=== PATIENT | female | born 1995 | race Two or more races ===

== ENCOUNTER 2016-06-10 09:48 | Emergency (ER) | payer MEDICAID ==
[2016-06-10 10:07] VITALS: BP 109/68
--- NOTE | 2016-06-10 10:28 | ER Document Report ---
ED Medical Screen (RME) - General Chief Complaint: Abdominal Pain Stated Complaint: STOMACH PAIN Mode of Arrival: Ambulatory Information source: Patient Notes: 21 y/o F presents to ED c/o intermittent bilateral lower abd pain over the last 2 weeks with associated n/v. States unknown LMP due to recent change from IUD to oral contraceptive. Denies fever, vaginal bleeding or discharge. I have greeted and performed a rapid initial assessment of this patient. A comprehensive ED assessment and evaluation of the patient, analysis of test results and completion of the medical decision making process will be conducted by additional ED providers. TRAVEL OUTSIDE OF THE [place] IN LAST 30 DAYS: No - Related Data Allergies/Adverse Reactions: No Known Allergies Allergy (Verified 02/06/12 14:55) Past Medical History - Social History Frequency of alcohol use: None Drug Abuse: None Pulmonary Medical History: Reports: Hx Asthma Renal/ Medical History: Denies: Hx Peritoneal Dialysis Past Surgical History: Reports: Hx Section - x1 - Immunizations Hx Diphtheria, Pertussis, Tetanus Vaccination: Yes Physical Exam - Vital signs Vitals: Temp Pulse Resp BP Pulse Ox 98.9 F 93 16 109/68 97 06/10/16 10:05 06/10/16 10:05 06/10/16 10:05 06/10/16 10:05 06/10/16 10:05 - General General appearance: Appears well, Alert In distress: None Course - Vital Signs Vital signs: Temp Pulse Resp BP Pulse Ox 98.9 F 93 16 109/68 97 06/10/16 10:05 06/10/16 10:05 06/10/16 10:05 06/10/16 10:05 06/10/16 10:05
[2016-06-10 10:49] LABS: ABSOLUTE EOSINOPHILS # (AUTO) 0.3 10^3/uL (0.0-0.6); ABSOLUTE LYMPHOCYTES (AUTO) 1.9 10^3/uL (0.5-4.7); ABSOLUTE MONOCYTES (AUTO) 0.5 10^3/uL (0.1-1.4); BASOPHILS % (AUTO) 0.6 % (0-2); EOSINOPHILS % (AUTO) 4.5 % (0-6); HEMATOCRIT 40.3 % (36.0-47.0); HEMOGLOBIN 13.2 g/dL (12.0-15.5); HGB HCT DIFFERENCE -0.7; MEAN CORPUSCULAR HEMOGLOBIN 26.7 pg (27.0-33.4); MEAN CORPUSCULAR HGB CONC 32.8 g/dL (32.0-36.0); MEAN CORPUSCULAR VOLUME 82 fl (80-97); MONOCYTES % (AUTO) 7.4 % (3-13); RED BLOOD COUNT 4.95 10^6/uL (3.72-5.28); RED CELL DISTRIBUTION WIDTH 13.6 % (11.5-14.0); SEGMENTED NEUTROPHILS % (AUTO) 59.5 % (42-78); WHITE BLOOD COUNT 6.7 10^3/uL (4.0-10.5)
[2016-06-10 10:57] LABS: APPEARANCE,URINE SLIGHTLY-CLOUDY; BILIRUBIN,URINE NEGATIVE (NEGATIVE); GLUCOSE, URINE NEGATIVE (NEGATIVE); KETONES,URINE NEGATIVE (NEGATIVE); LEUKOCYTE ESTERASE,URINE TRACE (NEGATIVE); NITRITE,URINE NEGATIVE (NEGATIVE); PROTEIN,URINE NEGATIVE (NEGATIVE); URINE SPECIFIC GRAVITY 1.016; UROBILINOGEN,URINE NEGATIVE mg/dL (<2.0)
[2016-06-10 11:11] LABS: ALANINE AMINOTRANSFERASE 32 U/L (9-52); ALBUMIN 3.7 g/dL (3.5-5.0); ALKALINE PHOSPHATASE 66 U/L (38-126); ANION GAP 10 (5-19); ASPARTATE AMINO TRANSFERASE 26 U/L (14-36); BILIRUBIN,TOTAL 0.5 mg/dL (0.2-1.3); BLOOD UREA NITROGEN 15 mg/dL (7-20); CALCIUM 9.6 mg/dL (8.4-10.2); CARBON DIOXIDE 28 mmol/L (22-30); CHLORIDE 103 mmol/L (98-107); CREATININE RESULT 0.87 mg/dL (0.52-1.25); GLUCOSE 78 mg/dL (75-110); LIPASE 58.3 U/L (23-300); POTASSIUM 4.1 mmol/L (3.6-5.0); SODIUM 141.1 mmol/L (137-145); TOTAL PROTEIN 7.1 g/dL (6.3-8.2)
--- NOTE | 2016-06-10 11:50 | ER Document Report ---
ED General - General Chief Complaint: Abdominal Pain Stated Complaint: STOMACH PAIN Time seen by provider: 11:49 Mode of Arrival: Ambulatory Information source: Patient Notes: This is a 21-year-old female who presents to the emergency room with intermittent abdominal discomfort. Patient states she hasn't felt right since the Mi[facility]. Patient denies fever, chills, vaginal discharge. Patient currently has no pain. TRAVEL OUTSIDE OF THE [place] IN LAST 30 DAYS: No - HPI Onset: Last week Onset/Duration: Gradual Quality of pain: Cramping Severity: None Pain Level: Denies Associated symptoms: denies: Chills, Nonproductive cough, Productive cough, Fever Exacerbated by: Denies Relieved by: Denies Similar symptoms previously: Yes Recently seen / treated by doctor: No - Related Data Allergies/Adverse Reactions: No Known Allergies Allergy (Verified 02/06/12 14:55) Past Medical History - General Information source: Patient - Social History Smoking Status: Never Smoker Cigarette use (# per day): No Chew tobacco use (# tins/day): No Frequency of alcohol use: None Drug Abuse: None Lives with: Spouse/Significant other Family History: Reviewed & Not Pertinent Patient has suicidal ideation: No Patient has homicidal ideation: No - Past Medical History Cardiac Medical History: Reports: None Pulmonary Medical History: Reports: Hx Asthma EENT Medical History: Reports: None Neurological Medical History: Reports: None Endocrine Medical History: Reports: None Renal/ Medical History: Denies: Hx Peritoneal Dialysis Malignancy Medical History: Reports: None GI Medical History: Reports: None Past Surgical History: Reports: Hx Section - x1 - Immunizations Hx Diphtheria, Pertussis, Tetanus Vaccination: Yes Review of Systems - Review of Systems Constitutional: denies: Chills, Fever EENT: No symptoms reported Cardiovascular: No symptoms reported Respiratory: No symptoms reported Gastrointestinal: No symptoms reported Genitourinary: See HPI Female Genitourinary: No symptoms reported Musculoskeletal: No symptoms reported Skin: No symptoms reported Hematologic/Lymphatic: No symptoms reported Neurological/Psychological: No symptoms reported Physical Exam - Vital signs Vitals: Temp Pulse Resp BP Pulse Ox 98.9 F 93 16 109/68 97 06/10/16 10:05 06/10/16 10:05 06/10/16 10:05 06/10/16 10:05 06/10/16 10:05 Notes: Physical exam: GENERAL: 21-year-old female, alert and oriented 3, no acute distress. HEAD: Atraumatic, normocephalic. EYES: Pupils equal round and reactive to light, extraocular movements intact, sclera anicteric, conjunctiva are normal. ENT: TMs normal, nares patent, oropharynx clear without exudates. Moist mucous membranes. NECK: Normal range of motion, supple without lymphadenopathy or JVD. LUNGS: Breath sounds clear to auscultation bilaterally and equal. No wheezes rales or rhonchi. HEART: Regular rate and rhythm without murmurs, rubs or gallops. ABDOMEN: Soft, nontender, normoactive bowel sounds. No guarding, no rebound. No masses appreciated. Pelvic exam: External genitalia normal, scant discharge in vault, no cervical motion tenderness, no adnexal tenderness. EXTREMITIES: Normal range of motion, no pitting or edema. No clubbing or cyanosis. NEUROLOGICAL: Cranial nerves II through XII grossly intact. Normal speech, normal gait. PSYCH: Normal mood, normal affect. SKIN: Warm, Dry, normal turgor, no rashes or lesions noted. Course - Vital Signs Vital signs: Temp Pulse Resp BP Pulse Ox 98.9 F 93 16 109/68 97 06/10/16 10:05 06/10/16 10:05 06/10/16 10:05 06/10/16 10:05 06/10/16 10:05 - Laboratory Result Diagrams: 06/10/16 10:30 06/10/16 10:30 Laboratory results interpreted by me: 06/10/16 06/10/16 10:30 10:30 MCH 26.7 L Ur Leukocyte Esterase TRACE H - Diagnostic Test Radiology reviewed: Image reviewed, Reports reviewed - Gallbladder exam shows no gallstones, normal gallbladder wall, no cholecystic fluid. Discharge - Discharge Bad tableCondition: Stable Disposition: HOME, SELF-CARE Additional Instructions: Recommendations: Rest, drink plenty of fluids, advance diet as tolerated. Return to the emergency room with worsening abdominal pain, persistant pain or pain which moves to the right lower abdomen. You can try Probiotics: Activia Probiotic is sold next is milk and [employer] : Twice daily for the next 2 weeks. Follow-up with a physician in the next two days: either with your primary care provider or a provider recommended by the ER doctor. If you are unable to see a provider, return to the ER for re-evaulation.
[2016-06-10 15:02] LABS: CHLAM PCR NOT DETECTED (NOT DETECT)
== END 2016-06-10 15:42 | disposition left against medical advice (07) ==
LOC: ER 09:48
DX: R10.9 Unspecified abdominal pain (principal); J45.909 Unspecified asthma, uncomplicated; Z98.890 Other specified postprocedural states
CPT/HCPCS: 36415; 76705; 80053; 81001; 83690; 84702; 85025; 87210; 87491; 87591; 99284

== ENCOUNTER 2016-06-18 21:27 | Emergency (ER) | payer MEDICAID ==
--- NOTE | 2016-06-18 22:43 | ER Document Report ---
ED Extremity Problem, Lower - General Time seen by provider: 23:10 Mode of Arrival: Wheelchair Information source: Patient TRAVEL OUTSIDE OF THE [place] IN LAST 30 DAYS: No - HPI Patient complains to provider of: Injury, Pain, Swelling Location: Ankle Occurred: This evening Where: Outdoors Onset/Duration: Sudden Quality of pain: Achy, Throbbing Context: Twisted Recent injury: Yes Associated symptoms: Painful ambulation <CARLOZ MUNIZ - Last Filed: 06/19/16 00:45> <MARY DALTON - Last Filed: 06/19/16 01:43> - General Chief Complaint: Ankle Injury Stated Complaint: LEFT ANKLE INJURY Notes: Patient is a 21-year-old female presented first department with complaints of pain and swelling to her left ankle. Patient states that she was walking and twisted her foot and all. Patient states that it is also painful to ambulate. Patient also has some pain to her left knee. Patient states that she has not used crutches before but does not think that she can ambulate effectively with the current condition of her ankle. Patient has no known allergies. (CARLOZ MUNIZ) - Related Data Allergies/Adverse Reactions: No Known Allergies Allergy (Verified 02/06/12 14:55) Past Medical History - General Information source: Patient - Social History Smoking Status: Never Smoker Cigarette use (# per day): No Chew tobacco use (# tins/day): No Frequency of alcohol use: None Drug Abuse: None Family History: None Patient has suicidal ideation: No Patient has homicidal ideation: No Pulmonary Medical History: Reports: Hx Asthma Past Surgical History: Reports: Hx Section - x1 - Immunizations Hx Diphtheria, Pertussis, Tetanus Vaccination: Yes <CARLOZ MUNIZ - Last Filed: 06/19/16 00:45> Review of Systems - Review of Systems Constitutional: No symptoms reported EENT: No symptoms reported Cardiovascular: No symptoms reported Respiratory: No symptoms reported Gastrointestinal: No symptoms reported Genitourinary: No symptoms reported Female Genitourinary: No symptoms reported Musculoskeletal: See HPI Skin: No symptoms reported Hematologic/Lymphatic: No symptoms reported Neurological/Psychological: No symptoms reported -: Yes All other systems reviewed and negative <CARLOZ MUNIZ - Last Filed: 06/19/16 00:45> Physical Exam - Vital signs Interpretation: Normal - General General appearance: Appears well, Alert In distress: Mild - HEENT Head: Normocephalic, Atraumatic Eyes: Normal Pupils: PERRL Mucous membranes: Moist - Respiratory Respiratory status: No respiratory distress - Cardiovascular Rhythm: Regular - Abdominal Inspection: Obese - Back Back: Normal, Nontender - Extremities General upper extremity: Normal inspection, Normal ROM, Normal strength Ankle: Tender - Tenderness to the inferior of the lateral malleolus, Ecchymosis , Edema - Neurological Neuro grossly intact: Yes Cognition: Normal Orientation: AAOx4 Veto Coma Scale Eye Opening: Spontaneous [place] Coma Scale Verbal: Oriented [place] Coma Scale Motor: Obeys Commands Veto Coma Scale Total: 15 Speech: Normal Sensory: Normal - Psychological Associated symptoms: Normal affect, Normal mood - Skin Skin Temperature: Warm Skin Moisture: Dry <CARLOZ MUNIZ - Last Filed: 06/19/16 00:45> Course <CARLOZ MUNIZ - Last Filed: 06/19/16 00:45> - Diagnostic Test Radiology reviewed: Reports reviewed <MARY DALTON - Last Filed: 06/19/16 01:43> - Re-evaluation Re-evalutation: 06/19/16 Patient with no evidence for fracture on x-ray. Patient with sprain of ankle. Patient will be given crutches, ankle splint. She is to follow-up with her doctor and return if any worsening or concerning symptoms. X-ray of knee within normal limits. No other injuries. Stable for discharge home. (MARY DALTON) - Vital Signs Vital signs: Temp Pulse Resp BP Pulse Ox 98.0 F 91 18 131/61 H 99 06/18/16 23:50 06/18/16 23:50 06/18/16 23:50 06/18/16 23:50 06/18/16 23:50 (CARLOZ MUNIZ) (MARY DALTON) Procedures - Immobilization Left Ankle Pre-Proc Neuro Vasc Exam: Normal Immobilizer type: Messi wrap, Ankle stirrup Performed by: PCT Post-Proc Neuro Vasc Exam: Normal Alignment checked and good: Yes <MARY DALTON - Last Filed: 06/19/16 01:43> Discharge <CARLOZ MUNIZ - Last Filed: 06/19/16 00:45> <MARY DALTON - Last Filed: 06/19/16 01:43> - Discharge Clinical Impression: Ankle sprain Qualifiers: Encounter type: initial encounter Involved ligament of ankle: unspecified ligament Laterality: left Qualified Code(s): S93.402A - Sprain of unspecified ligament of left ankle, initial encounter Condition: Stable Disposition: HOME, SELF-CARE Instructions: Messi Wrap ([facility]), Ankle Stirrup Splint ([facility]), Use of Crutches ([facility]) , Sprained Ankle ([facility]) Prescriptions: Tramadol HCl [Ultram 50 mg Tablet] 50 mg PO Q6HP PRN #20 tablet PRN Reason: Forms: Return to Work Scribe Attestation: 06/19/16 01:43 I personally performed the services described in the documentation, reviewed and edited the documentation which was dictated to the scribe in my presence, and it accurately records my words and actions. (MARY DALTON) Scribe Documentation - Scribe Written by Carolina:: Carloz Muniz 06/18/16 23:35 acting as scribe for :: Digna <CARLOZ MUNIZ - Last Filed: 06/19/16 00:45>
[2016-06-18] MEDS ORDERED: HYDROCODONE/ACETAMINOPHEN 5-325 MG 6 TAB/DSPK PO PRN (23:15)
[2016-06-18 23:52] VITALS: BP 131/61
== END 2016-06-19 00:50 | disposition home or self-care (01) ==
LOC: ER 21:27
DX: S93.402A Sprain of unspecified ligament of left ankle, initial encounter (principal); M25.562 Pain in left knee; X50.1XXA Overexertion from prolonged static or awkward postures, initial encounter
CPT/HCPCS: 99283; 73610; 73560; L1902

== ENCOUNTER 2016-10-23 09:57 | Emergency (ER) | payer MEDICAID ==
--- NOTE | 2016-10-23 10:26 | ER Document Report ---
ED Medical Screen (RME) - General Chief Complaint: Nausea/Vomiting/Diarrhea Stated Complaint: ABDOMINAL PAIN/NAUSEA/DIARRHEA Time Seen by Provider: 10/23/16 10:25 Notes: Patient is a 21 year old female presenting to the ED for nausea, vomiting, and diarrhea since last night. Patient also had some spotting on Saturday or Saturday. Patient states she also has her normal "morning sickness" from her . Patient guesses she is 20 weeks but she states her last menstrual cycle was in April or May. Patient also has general abdominal cramping and some chills. Patient denies bloody stool or hematemesis. Patient is . I have greeted and performed a rapid initial assessment of this patient. A comprehensive ED assessment and evaluation of the patient, analysis of test results and completion of the medical decision making process will be conducted by additional ED providers. TRAVEL OUTSIDE OF THE [place] IN LAST 30 DAYS: No - Related Data Allergies/Adverse Reactions: No Known Allergies Allergy (Verified 10/23/16 10:13) Past Medical History Pulmonary Medical History: Reports: Hx Asthma Renal/ Medical History: Denies: Hx Peritoneal Dialysis Past Surgical History: Reports: Hx Section - x1 - Immunizations Hx Diphtheria, Pertussis, Tetanus Vaccination: Yes Physical Exam - Notes Notes: GENERAL: Alert, interacts well. No acute distress. LUNGS: Clear to auscultation bilaterally, no wheezes, rales, or rhonchi. No respiratory distress. HEART: Regular rate and rhythm. No murmurs, gallops, or rubs. ABDOMEN: Minimal generalized tenderness. Course - Laboratory Result Diagrams: 10/23/16 10:35 10/23/16 10:35 Laboratory results interpreted by me: 10/23/16 10:35 Hgb 11.1 L Hct 33.2 L RDW 16.4 H Scribe Documentation - Scribe Written by Carolina:: Carolina Cain, 10/23/16 10:32 acting as scribe for :: Noel
[2016-10-23 10:44] LABS: ABSOLUTE EOSINOPHILS # (AUTO) 0.1 10^3/uL (0.0-0.6); ABSOLUTE LYMPHOCYTES (AUTO) 1.3 10^3/uL (0.5-4.7); ABSOLUTE MONOCYTES (AUTO) 0.4 10^3/uL (0.1-1.4); ABSOLUTE NEUT (AUTO) 6.1 10^3/uL (1.7-8.2); BASOPHILS % (AUTO) 0.4 % (0-2); EOSINOPHILS % (AUTO) 1.5 % (0-6); HEMATOCRIT 33.2 % (36.0-47.0); HEMOGLOBIN 11.1 g/dL (12.0-15.5); HGB HCT DIFFERENCE 0.1; LYMPHOCYTES % (AUTO) 16.3 % (13-45); MEAN CORPUSCULAR HEMOGLOBIN 28.6 pg (27.0-33.4); MEAN CORPUSCULAR HGB CONC 33.5 g/dL (32.0-36.0); MEAN CORPUSCULAR VOLUME 85 fl (80-97); MONOCYTES % (AUTO) 4.9 % (3-13); RED CELL DISTRIBUTION WIDTH 16.4 % (11.5-14.0); SEGMENTED NEUTROPHILS % (AUTO) 76.9 % (42-78); WHITE BLOOD COUNT 7.9 10^3/uL (4.0-10.5)
[2016-10-23] MEDS ORDERED: NORMAL SALINE 1000 ML 1,000 ML IV ONE (11:04)
[2016-10-23 11:22] LABS: ALANINE AMINOTRANSFERASE 27 U/L (9-52); ALBUMIN 3.5 g/dL (3.5-5.0); ALKALINE PHOSPHATASE 56 U/L (38-126); ANION GAP 11 (5-19); ASPARTATE AMINO TRANSFERASE 16 U/L (14-36); BILIRUBIN,DIRECT 0.2 mg/dL (0.0-0.4); BILIRUBIN,TOTAL 0.4 mg/dL (0.2-1.3); BLOOD UREA NITROGEN 8 mg/dL (7-20); CALCIUM 9.5 mg/dL (8.4-10.2); CARBON DIOXIDE 23 mmol/L (22-30); CHLORIDE 105 mmol/L (98-107); CREATININE RESULT 0.64 mg/dL (0.52-1.25); GLUCOSE 78 mg/dL (75-110); POTASSIUM 4.1 mmol/L (3.6-5.0); SODIUM 138.9 mmol/L (137-145); TOTAL PROTEIN 6.5 g/dL (6.3-8.2)
[2016-10-23 11:52] LABS: AMORPHOUS SEDIMENT,URINE TRACE /HPF; APPEARANCE,URINE SLIGHTLY-CLOUDY; BILIRUBIN,URINE NEGATIVE (NEGATIVE); GLUCOSE, URINE NEGATIVE (NEGATIVE); KETONES,URINE NEGATIVE (NEGATIVE); LEUKOCYTE ESTERASE,URINE SMALL (NEGATIVE); NITRITE,URINE NEGATIVE (NEGATIVE); PROTEIN,URINE NEGATIVE (NEGATIVE); URINE SPECIFIC GRAVITY 1.029; UROBILINOGEN,URINE NEGATIVE mg/dL (<2.0)
--- NOTE | 2016-10-23 12:18 | RADIOLOGY REPORT (SQ) ---
EXAM DESCRIPTION: U/S OB 14+ TRNABD 1GES W/O DOP COMPLETED DATE/TIME: 10/23/2016 12:07 pm REASON FOR STUDY: 4 - 5 mos preg; spotting yest COMPARISON: None. TECHNIQUE: Static and Dynamic grayscale imaging performed of gravid uterus using transabdominal appr oach. Additional selected color Doppler and spectral images recorded. All stored on PACS. LIMITATIONS: None. FINDINGS: EGA: 21 weeks 6 days KIMI: 02/27/2017 EFW: 464 +/- 39 g PERCENTILE: Not calculated ELLIE: Largest pocket 6.4 cm PLACENTA: Anterior PRESENTATION: Breech ANATOMY: HEART RATE: 123 beats per minute. FOUR CHAMBER HEART: Visualized. THREE VESSEL CORD: Yes. CORD INSERTION: Visualized. KIDNEYS AND BLADDER: Visualized. Appear normal. STOMACH: Visualized. Appears normal. SPINE: Normal as visualized. BRAIN AND LATERAL VENTRICLES: Visualized. Appear normal. OTHER: No other significant finding. MATERNAL ADNEXA: Maternal ovaries not visualized. OTHER: No other significant finding. IMPRESSION: LIVING INTRAUTERINE . ESTIMATED GESTATIONAL AGE 21 weeks 6 days NO VISUALIZED ANOMALIES. Trimester of : Second trimester - 13 weeks 1 day to 27 weeks 6 days. TECHNICAL DOCUMENTATION: JOB ID: [id number] [employer]- All Rights Reserved
--- NOTE | 2016-10-23 12:48 | ER Document Report ---
ED GI/ - General Chief Complaint: Nausea/Vomiting/Diarrhea Stated Complaint: ABDOMINAL PAIN/NAUSEA/DIARRHEA Time Seen by Provider: 10/23/16 10:25 Notes: Patient is here because she is having abdominal pains, and nausea, vomiting, and diarrhea. She says that she is approximately 5 . She noticed some vaginal spotting Saturday but it is not present now. Not having any current abdominal or pelvic pains. She has not had any care. She is scheduled to go to the health department for her first visit next week. This is her second and she has a living child. LMP April or May, not sure. Denies any fever. Has had some sweats. PMH: TRAVEL OUTSIDE OF THE [place] IN LAST 30 DAYS: No - Related Data Allergies/Adverse Reactions: No Known Allergies Allergy (Verified 10/23/16 10:13) Past Medical History - Social History Smoking Status: Never Smoker Chew tobacco use (# tins/day): No Frequency of alcohol use: None Drug Abuse: None Family History: None, Reviewed & Not Pertinent Patient has suicidal ideation: No Patient has homicidal ideation: No Pulmonary Medical History: Reports: Hx Asthma Past Surgical History: Reports: Hx Section - x1 - Immunizations Hx Diphtheria, Pertussis, Tetanus Vaccination: Yes Review of Systems - Review of Systems Notes: REVIEW OF SYSTEMS: CONSTITUTIONAL : Denies fever. EENT: Denies eye, ear, nose or mouth or throat pain or other symptoms. CARDIOVASCULAR: Denies chest pain. RESPIRATORY: Denies cough, chest congestion, or shortness of breath. GASTROINTESTINAL: See HPI. GENITOURINARY: Denies difficulty or painful urinating, urinary frequency, blood in urine. See HPI. MUSCULOSKELETAL: Denies back or neck pain. Denies joint pain or swelling. SKIN: Denies rash or skin lesions. NEUROLOGICAL: Denies LOC or altered mental status. Denies headache. Denies sensory loss or motor deficits. ALL OTHER SYSTEMS REVIEWED AND NEGATIVE. Physical Exam - Vital signs Interpretation: Normal - Notes Notes: PHYSICAL EXAMINATION: GENERAL: Well-appearing, in no acute distress. Vital signs are all normal. HEAD: Atraumatic, normocephalic. NECK: Normal range of motion, supple. LUNGS: Breath sounds clear and equal bilaterally. HEART: Regular rate and rhythm without murmurs. ABDOMEN: Soft, nontender. No guarding or rebound. BACK: No tenderness throughout entire back. EXTREMITIES: Normal range of motion without pain. NEUROLOGICAL: Normal speech, normal gait. Normal sensory, motor, and reflex exams. Awake, alert, and oriented x3. Cranial nerves normal. SKIN: Warm, dry, no rashes. Course - Re-evaluation Re-evalutation: 10/23/16 12:52 Patient received a liter of saline. Lab studies are all essentially normal. Abdomen remains soft and nontender. We will arrange for patient to be evaluated in L&D because of the spotting that she reports and the mild generalized cramping that she reports. - Laboratory Result Diagrams: 10/23/16 10:35 10/23/16 10:35 Laboratory results interpreted by me: 10/23/16 10/23/16 10/23/16 10:35 10:35 11:30 Hgb 11.1 L Hct 33.2 L RDW 16.4 H Beta HCG, Quant 96291.00 H Ur Leukocyte Esterase SMALL H - Diagnostic Test Radiology reviewed: Image reviewed, Reports reviewed - Ultrasound shows a 21 week living IUP. Discharge - Discharge Clinical Impression: Qualifiers: Weeks of gestation: 22 weeks Qualified Code(s): Z3A.22 - 22 weeks gestation of Condition: Stable Disposition: HOME, SELF-CARE Additional Instructions: You are . care is best started as early in as possible. If you're unsure about continuing this , you should discuss this with your physician or with date pitter at [facility]. You should take only medications approved by your physician. Acetaminophen can safely be taken for minor pains. As a rule, medication for chronic conditions such as asthma or seizures can safely be continued. You should discuss with the physician every medicine you take. Any regular exercise program can be continued. Talk to your physician, however, before engaging in competitive or demanding sports. Alcohol, smoking, and "street drugs" are dangerous to your baby. Cocaine is especially dangerous. Don't use any illicit drugs! VOMITING: Vomiting (or nausea without vomiting) can be caused by many other different problems. It can mean that something's wrong with the stomach, such as ulcers or inflammation or the intestinal tract, such as appendicitis. But it can also be a symptom of a problem that has nothing to do with the stomach or intestines. Vomiting is common with severe headaches, earaches, tonsillitis, and kidney infections, etc. We see it with pneumonia or heart attacks. Drugs can cause nausea and vomiting. Many abdominal problems cause vomiting; for example, gallstones, kidney stones, pancreatitis, and intestinal obstruction ( blocked bowels). In most cases, curing the vomiting depends on fixing the problem that caused it. For temporary relief, we may use an anti-nausea medicine. For home use, we can prescribe suppositories, chewable pills, pills that dissolve in the mouth, or liquid anti-nausea drugs. If the vomiting seems to be caused by a problem in the stomach, acid-suppressing drugs may be prescribed as well. It's important to avoid dehydration. Sip small amounts of clear liquids ( soft drinks, tea, broth, etc) . Try to take fluids frequently even if you are vomiting to prevent dehydration. Take increasing amounts of fluid and when liquids are being consumed successfully, advance to small amounts of bland food (toast, soups, mashed potatoes, etc.) until you are able to resume a regular diet. Avoid aspirin, tobacco, and alcohol. If the vomiting worsens, if the problem that's making you vomit worsens, or if there's evidence of bleeding in the stomach (such as black, tarry stool, or bloody or black vomit), you should return immediately. Also, return if abdominal pain worsens or becomes localized to one area or you develop high fever. Call your doctor if you aren't improved in 24 hours. DIARRHEA, NON-SPECIFIC: Diarrhea means frequent, watery stools. There are many causes. Any problem that keeps the intestinal tract from absorbing water from the stool can lead to diarrhea. A sudden new diarrhea problem is usually caused by a virus, food sensitivity, toxic bacteria, or drugs. In this case, we expect the problem to go away soon. Testing is done only if you seem seriously ill from the diarrhea. If you have chronic diarrhea, or diarrhea that keeps coming back, we need to find out why. Chronic diarrhea can be due to inflammation of the bowels such as Crohn's disease or ulcerative colitis, food sensitivity such as intolerance to lactose or wheat protein, irritable bowel syndrome, and other problems. If your diarrhea is a significant problem but it's not clear why you have it, we' ll refer you to a specialist for further testing. During an episode of diarrhea, drink small amounts (two to six ounces) of clear liquids (soft drinks, sport drinks, herb teas, broth, etc). Take fluids frequently to prevent dehydration. It's usually not a problem to take mild anti- diarrhea medication such as Kaopectate or Pepto-Bismol. As the diarrhea eases, advance to small amounts of bland food (mashed potato, toast) for 24 hours. Call the physician if blood appears in your vomit or stool, if vomiting lasts longer than 24 hours, if the abdominal pain worsens or becomes localized to one area, if you develop high fever, or if you become lightheaded and weak. VIRAL SYNDROME: The physician has diagnosed a viral infection. Viruses not only cause "colds," but can cause many different symptoms including generalized aching, fever, headache, cough, diarrhea, nausea, vomiting, and fatigue. The treatment, for the most part, is simply relief of symptoms. This means that antibiotics are usually not given. Rest, fluids, pain medications and, occasionally, medication for the specific symptoms that are most bothersome will be prescribed. Use good handwashing to avoid passing the virus to others. Shared toys should be cleaned with disinfectant. Clean the toilets, sinks, and counter surfaces in bathrooms. Launder clothing in hot water. Contact the physician if you develop any new or unusual symptoms such as severe headache, stiff neck, high fever, chest pain, productive cough, or shortness of breath. You should be rechecked if you don't see marked improvement within seven to 10 days. INTRAVENOUS (I V) FLUIDS: As part of your care today, you received intravenous (IV) fluids. IV fluids are administered to patients who are dehydrated or to those who have certain chemical (electrolyte) abnormalities that need correcting. ANTINAUSEA MEDICATION: You have been given a medication to suppress nausea and vomiting. This type of medication can be given as a shot, pill, or suppository. It will usually last for many hours. Pills and shots usually last six to eight hours. For the typical illness, only one or two doses of the medication may be necessary. Mild lightheadedness may occur. This type of medicine can cause drowsiness. Do not drive or operate dangerous machinery while under its influence. Do not mix with alcohol. See your doctor at once if you have muscle spasms or tightness, or uncontrollable motions (particularly of the neck, mouth, or jaw). Persistent vomiting or severe lightheadedness should also be evaluated by the physician. FOLLOW-UP CARE: If you have been referred to a physician for follow-up care, call the physician s office for an appointment as you were instructed or within the next two days. If you experience worsening or a significant change in your symptoms, notify the physician immediately or return to the Emergency Department at any time for re-evaluation. Follow-up at the health department next week, as scheduled. Prescriptions: Ondansetron [Zofran Odt 4 mg Tablet] 1 - 2 tab PO Q4H PRN #10 tab.rapdis PRN Reason: For Nausea/Vomiting
[2016-10-23 13:24] VITALS: BP 109/59
== END 2016-10-23 14:00 | disposition home or self-care (01) ==
LOC: ER 09:57
DX: R11.2 Nausea with vomiting, unspecified (principal); R19.7 Diarrhea, unspecified; R10.9 Unspecified abdominal pain; Z3A.22 22 weeks gestation of pregnancy
CPT/HCPCS: 99284; 86900; 86901; 36415; 84702; 85025; 80053; 81001; 76805; J7030

== ENCOUNTER 2017-02-16 13:30 | Emergency (ER) | payer MEDICAID ==
[2017-02-16] MEDS ORDERED: NORMAL SALINE 1000 ML 1,000 ML IV PRN (13:55)
[2017-02-16] MEDS ORDERED: ONDANSETRON HCL INJ/PF 4 MG/2 ML SDV IV ONE (13:55)
--- NOTE | 2017-02-16 13:57 | ER Document Report ---
ED Medical Screen (RME) - General Chief Complaint: Back Pain Stated Complaint: BACK PAIN/CRAMPING Time Seen by Provider: 02/16/17 13:37 Mode of Arrival: Ambulatory Information source: Patient TRAVEL OUTSIDE OF THE [place] IN LAST 30 DAYS: No - HPI Patient complains to provider of: Abdominal pain with nausea and vomiting Notes: 02/16/17 13:56 Patient is a 22-year-old female presenting to the emergency room for complaints of upper abdominal pain with nausea and vomiting that has been worsening over the past 7-10 days, she reports nausea with vomiting after eating, dark orange colored urine although she drinks plenty of water, pain is a cramping sensation and turns into a sharp pain when she takes a deep breath, she also has pain between her shoulder blades, patient is approximately 5 weeks post via C- section delivery at 34 weeks gestation, no history of similar symptoms previously, patient still has a gallbladder and appears jaundice with scleral icterus in triage area - Related Data Allergies/Adverse Reactions: No Known Allergies Allergy (Verified 10/23/16 10:13) Past Medical History Pulmonary Medical History: Reports: Hx Asthma Renal/ Medical History: Denies: Hx Peritoneal Dialysis GI Medical History: Reports: Hx Gastroesophageal Reflux Disease - only Past Surgical History: Reports: Hx Section - x1 - Immunizations Hx Diphtheria, Pertussis, Tetanus Vaccination: Yes Physical Exam - Vital signs Vitals: Temp Pulse Resp BP Pulse Ox 98.8 F 68 16 124/69 98 02/16/17 13:32 02/16/17 13:32 02/16/17 13:32 02/16/17 13:32 02/16/17 13:32 Course - Vital Signs Vital signs: Temp Pulse Resp BP Pulse Ox 98.8 F 68 16 124/69 98 02/16/17 13:32 02/16/17 13:32 02/16/17 13:32 02/16/17 13:32 02/16/17 13:32
--- NOTE | 2017-02-16 14:30 | ER Document Report ---
ED General - General Mode of Arrival: Ambulatory Information source: Patient TRAVEL OUTSIDE OF THE [place] IN LAST 30 DAYS: No - HPI Onset: Other <CARLOZ MUNIZ - Last Filed: 02/16/17 16:07> <LOIS BRANDT - Last Filed: 02/16/17 22:59> <NGOZIHERNESTO - Last Filed: 02/17/17 13:41> - General Chief Complaint: Back Pain Stated Complaint: BACK PAIN/CRAMPING Time Seen by Provider: 02/16/17 13:37 Notes: Patient is a 22-year-old female presented emergency department for right upper quadrant abdominal pain that radiates into her back. Patient also has nausea and vomiting 7-10 days. Patient states that her pain is exacerbated with eating and she gets abdominal cramps with eating. Patient states that she also has had orange colored urine. Patient states she drinks lots of water daily. Patient states that she has sharp pains when she takes a deep breath that she rated her shoulder blades. Patient is approximately 5 weeks from an emergency . This is patient's second and it occurred at 34 weeks gestation due to a membrane rupture. Patient states that she is no longer breast-feeding. Patient does have a history of asthma however she does not have to take any medications and has not had any exacerbations for such. Patient has no known drug allergies. (CARLOZ MUNIZ) - Related Data Allergies/Adverse Reactions: No Known Allergies Allergy (Verified 10/23/16 10:13) Past Medical History - General Information source: Patient - Social History Smoking Status: Never Smoker Chew tobacco use (# tins/day): No Frequency of alcohol use: None Drug Abuse: None Family History: None Patient has suicidal ideation: No Patient has homicidal ideation: No Pulmonary Medical History: Reports: Hx Asthma GI Medical History: Reports: Hx Gastroesophageal Reflux Disease - only Past Surgical History: Reports: Hx Section - x1 - Immunizations Hx Diphtheria, Pertussis, Tetanus Vaccination: Yes <CARLOZ MUNIZ - Last Filed: 02/16/17 16:07> Review of Systems - Review of Systems Constitutional: No symptoms reported EENT: No symptoms reported Cardiovascular: No symptoms reported Respiratory: No symptoms reported Gastrointestinal: See HPI, Abdominal pain, Nausea, Vomiting Genitourinary: See HPI, Other - orange urine Female Genitourinary: No symptoms reported Musculoskeletal: See HPI Skin: No symptoms reported Hematologic/Lymphatic: No symptoms reported Neurological/Psychological: No symptoms reported -: Yes All other systems reviewed and negative <CARLOZ MUNIZ - Last Filed: 02/16/17 16:07> Physical Exam - Vital signs Interpretation: Normal <CARLOZ MUNIZ - Last Filed: 02/16/17 16:07> <LOIS BRANDT - Last Filed: 02/16/17 22:59> <HERNESTO MELVIN - Last Filed: 02/17/17 13:41> - Vital signs Vitals: Temp Pulse Resp BP Pulse Ox 98.8 F 68 16 124/69 98 02/16/17 13:32 02/16/17 13:32 02/16/17 13:32 02/16/17 13:32 02/16/17 13:32 - Notes Notes: GENERAL: Alert, interacts well. Mild distress. HEAD: Normocephalic, atraumatic. EYES: Appear normal. Pupils equal, round, and reactive to light. ENT: Moist mucus membranes, tongue midline. NECK: Full range of motion. Supple. Trachea midline. LUNGS: Clear to auscultation bilaterally, no wheezes, rales, or rhonchi. No respiratory distress. HEART: Regular rate and rhythm. No murmurs, gallops, or rubs. ABDOMEN: Soft, right upper quadrant tenderness with palpation. Normal bowel sounds. EXTREMITIES: Moves all 4 extremities spontaneously. Normal strength. No edema. NEUROLOGICAL: Alert and oriented x3. Normal speech. No focal neurological deficits. GCS 15. PSYCH: Normal affect, normal mood. SKIN: Warm, dry, normal turgor. (CARLOZ MUNIZ) Course - Laboratory Result Diagrams: 02/16/17 14:15 02/16/17 14:15 <CARLOZ MUNIZ - Last Filed: 02/16/17 16:07> - Laboratory Result Diagrams: 02/16/17 14:15 02/16/17 14:15 - Diagnostic Test Radiology reviewed: Image reviewed, Reports reviewed - Ultrasound shows gallstones with a common bile duct of 13 mm. There is no common bile duct stone visualized. - Consults Dr. Boggs Consulted provider: other - Dr. Boggs will see the patient at [facility] for ERCP. Dr. De Anda will be the hospitalist actually accepting the patient for admission. There are currently no beds available so the patient will be on a waiting list. - Transfer of Care Care transferred to following provider: Dr. Hoffmann <LOIS BRANDT - Last Filed: 02/16/17 22:59> - Laboratory Result Diagrams: 02/17/17 10:45 02/17/17 10:45 <HERNESTO MELVIN - Last Filed: 02/17/17 13:41> - Re-evaluation Re-evalutation: 02/16/17 16:47 The patient has been accepted at [facility] for ERCP. There are currently no beds available. [facility] is in the same position with no beds and we have patients on the waiting list for [facility] in our emergency room at this time also. (LOIS BRANDT) - Vital Signs Vital signs: Temp Pulse Resp BP Pulse Ox 98.3 F 60 18 120/65 100 02/17/17 03:24 02/17/17 03:24 02/17/17 03:24 02/17/17 03:24 02/17/17 03:24 - Laboratory Laboratory results interpreted by me: 02/16/17 02/16/17 02/17/17 14:15 14:15 10:45 Hct 35.2 L Chloride Total Bilirubin 5.8 H Direct Bilirubin 4.8 H AST 223 H ALT 448 H Alkaline Phosphatase 449 H Total Protein Albumin Urine Blood MODERATE H Urine Bilirubin MODERATE H Urine Urobilinogen 4.0 H Ur Leukocyte Esterase LARGE H 02/17/17 10:45 Hct Chloride 109 H Total Bilirubin 5.0 H Direct Bilirubin 4.3 H AST 199 H ALT 360 H Alkaline Phosphatase 390 H Total Protein 6.1 L Albumin 3.4 L Urine Blood Urine Bilirubin Urine Urobilinogen Ur Leukocyte Esterase - Transfer of Care Notes: 02/16/17 23:00 The patient is pending transfer to [facility]. There will not be a bed available tonight. The patient is to be n.p.o. after midnight in case she is able to get transferred out in the morning for ERCP. (LOIS BRANDT) Discharge <CARLOZ MUNIZ - Last Filed: 02/16/17 16:07> <LOIS BRANDT - Last Filed: 02/16/17 22:59> <HERNESTO MELVIN - Last Filed: 02/17/17 13:41> - Discharge Clinical Impression: Jaundice Cholelithiasis Qualifiers: Cholelithiasis location: gallbladder and bile duct Cholecystitis presence: with cholecystitis Cholecystitis acuity: acute Biliary obstruction: with biliary obstruction Qualified Code(s): K80.63 - Calculus of gallbladder and bile duct with acute cholecystitis with obstruction Condition: Stable Disposition: [place] Scribe Attestation: 02/16/17 16:56 I personally performed the services described in the documentation, reviewed and edited the documentation which was dictated to the scribe in my presence, and it accurately records my words and actions. (LOIS BRANDT) Scribe Documentation - Scribe Written by Carolina:: Carolina Cain 02/16/2017 16:23 acting as scribe for :: Genie <CARLOZ MUNIZ - Last Filed: 02/16/17 16:07>
[2017-02-16 14:36] LABS: ABSOLUTE EOSINOPHILS # (AUTO) 0.2 10^3/uL (0.0-0.6); ABSOLUTE LYMPHOCYTES (AUTO) 1.3 10^3/uL (0.5-4.7); ABSOLUTE MONOCYTES (AUTO) 0.3 10^3/uL (0.1-1.4); ABSOLUTE NEUT (AUTO) 3.3 10^3/uL (1.7-8.2); BASOPHILS % (AUTO) 0.7 % (0-2); EOSINOPHILS % (AUTO) 3.6 % (0-6); HEMATOCRIT 37.5 % (36.0-47.0); HEMOGLOBIN 12.6 g/dL (12.0-15.5); HGB HCT DIFFERENCE 0.3; LYMPHOCYTES % (AUTO) 25.1 % (13-45); MEAN CORPUSCULAR HEMOGLOBIN 27.5 pg (27.0-33.4); MEAN CORPUSCULAR HGB CONC 33.6 g/dL (32.0-36.0); MEAN CORPUSCULAR VOLUME 82 fl (80-97); MONOCYTES % (AUTO) 5.5 % (3-13); RED BLOOD COUNT 4.59 10^6/uL (3.72-5.28); SEGMENTED NEUTROPHILS % (AUTO) 65.1 % (42-78); WHITE BLOOD COUNT 5.1 10^3/uL (4.0-10.5)
[2017-02-16 14:37] LABS: APPEARANCE,URINE SLIGHTLY-CLOUDY; BILIRUBIN,URINE MODERATE (NEGATIVE); GLUCOSE, URINE NEGATIVE (NEGATIVE); KETONES,URINE NEGATIVE (NEGATIVE); LEUKOCYTE ESTERASE,URINE LARGE (NEGATIVE); NITRITE,URINE NEGATIVE (NEGATIVE); PROTEIN,URINE NEGATIVE (NEGATIVE); URINE SPECIFIC GRAVITY 1.019
[2017-02-16 14:53] LABS: ALANINE AMINOTRANSFERASE 448 U/L (9-52); ALBUMIN 4.2 g/dL (3.5-5.0); ALKALINE PHOSPHATASE 449 U/L (38-126); ANION GAP 10 (5-19); ASPARTATE AMINO TRANSFERASE 223 U/L (14-36); BILIRUBIN,DIRECT 4.8 mg/dL (0.0-0.4); BILIRUBIN,TOTAL 5.8 mg/dL (0.2-1.3); BLOOD UREA NITROGEN 11 mg/dL (7-20); CALCIUM 9.6 mg/dL (8.4-10.2); CARBON DIOXIDE 28 mmol/L (22-30); CHLORIDE 105 mmol/L (98-107); CREATININE RESULT 0.93 mg/dL (0.52-1.25); GLUCOSE 80 mg/dL (75-110); LIPASE 99.1 U/L (23-300); POTASSIUM 4.2 mmol/L (3.6-5.0); SODIUM 142.6 mmol/L (137-145); TOTAL PROTEIN 7.8 g/dL (6.3-8.2)
--- NOTE | 2017-02-16 15:11 | RADIOLOGY REPORT (SQ) ---
EXAM DESCRIPTION: U/S ABDOMEN LIMITED W/O DOP COMPLETED DATE/TIME: 02/16/2017 3:01 pm REASON FOR STUDY: pain COMPARISON: 06/10/2016 TECHNIQUE: Dynamic and static grayscale images acquired of the abdomen and recorded on PACS. Additio karen selected color Doppler and spectral images recorded. LIMITATIONS: Overlying bowel gas. FINDINGS: PANCREAS: Largely obscured. LIVER: No masses. Echotexture normal. LIVER VASCULATURE: Normal directional flow of the main portal vein and hepatic veins. GALLBLADDER: Gallstones. Gallbladder wall 3 mm. No pericholecystic fluid. ULTRASOUND-DETECTED BAEZ'S SIGN: Positive. INTRAHEPATIC DUCTS AND COMMON DUCT: Dilated common bile duct about 13 mm 5 pancreatic head. No visua lized common bile duct stone. INFERIOR VENA CAVA: Not imaged. AORTA: No aneurysm. RIGHT KIDNEY: Normal size. Normal echogenicity. No solid or suspicious masses. No hydronephrosis. No calcifications. PERITONEAL AND RIGHT PLEURAL SPACE: No ascites or effusions. OTHER: No other significant findings. IMPRESSION: Cholecystitis. Dilated common bile duct without visualized common bile duct stone. TECHNICAL DOCUMENTATION: JOB ID: [id number] [employer]- All Rights Reserved
[2017-02-16 15:19] LABS: PROTHROMBIN TIME 12.8 SEC (11.4-15.4)
[2017-02-16] MEDS ORDERED: DEXTROSE 5%-NORMAL SALINE 1,000 ML IV ONE (16:19)
[2017-02-16] MEDS ORDERED: KETOROLAC TROMETHAMINE INJ/PF 30 MG/1 ML SDV IV ONE (16:47)
[2017-02-17] MEDS ORDERED: ONDANSETRON HCL INJ/PF 4 MG/2 ML SDV IV PRN (10:36)
[2017-02-17] MEDS: MORPHINE SULFATE 10 MG/ML INJ IV PRN ×2 (10:41→14:47)
--- NOTE | 2017-02-17 10:43 | ER Document Report ---
Doctor's Note Notes: 02/17/17 11:[address] [facility] [address] jaimes will accept for transfer, awiting bed placement (CYNDY GREENBERG) 02/17/17 10:39 This is a 22-year-old female who is 5 weeks who presented with one- week history of abdomen and back pain and was found to have jaundice on exam and elevated LFTs. Ultrasound revealed gallstones, mildly thickened gallbladder wall and a common bile duct of 1.3 cm. She is awaiting transfer to [facility] For GI/ERCP (there is no GI coverage here at this hospital). currently, patient is complaining of some abdominal cramping and back pain. She has been afebrile and her vital signs are stable. She is currently n.p.o. and she is receiving IV fluids.. Morning labs are pending. I initiated further phone calls to [facility] and will call other hospitals if necessary. [facility] does not expect a bed today. 02/17/17 13:39 The [facility] is is that there are no beds. I have presented the case to Dr. Crouch in the ER at [place] and she was willing to accept the patient in transfer ER to ER so that the patient could get seen promptly by GI. On review of the ultrasound report, the formal reading states cholecystitis. Clinically, I think the patient more has choledocholithiasis. However, given the formal read, I will cover her with IV Invanz. The patient is hemodynamically stable at this time. 02/17/17 14:56 Patient continues to be Stable hemodynamically. I discussed with her and her the plans for transfer to [place]. They are okay with the transport. (HERNESTO MELVIN)
[2017-02-17 10:55] LABS: ABSOLUTE EOSINOPHILS # (AUTO) 0.2 10^3/uL (0.0-0.6); ABSOLUTE LYMPHOCYTES (AUTO) 1.1 10^3/uL (0.5-4.7); ABSOLUTE MONOCYTES (AUTO) 0.3 10^3/uL (0.1-1.4); ABSOLUTE NEUT (AUTO) 2.7 10^3/uL (1.7-8.2); BASOPHILS % (AUTO) 1.1 % (0-2); EOSINOPHILS % (AUTO) 3.5 % (0-6); HEMATOCRIT 35.2 % (36.0-47.0); HEMOGLOBIN 12.1 g/dL (12.0-15.5); HGB HCT DIFFERENCE 1.1; MEAN CORPUSCULAR HGB CONC 34.3 g/dL (32.0-36.0); MEAN CORPUSCULAR VOLUME 81 fl (80-97); RED BLOOD COUNT 4.33 10^6/uL (3.72-5.28); RED CELL DISTRIBUTION WIDTH 13.8 % (11.5-14.0); SEGMENTED NEUTROPHILS % (AUTO) 63.4 % (42-78); WHITE BLOOD COUNT 4.3 10^3/uL (4.0-10.5)
[2017-02-17 11:16] LABS: ALANINE AMINOTRANSFERASE 360 U/L (9-52); ALBUMIN 3.4 g/dL (3.5-5.0); ALKALINE PHOSPHATASE 390 U/L (38-126); ANION GAP 7 (5-19); ASPARTATE AMINO TRANSFERASE 199 U/L (14-36); BILIRUBIN,DIRECT 4.3 mg/dL (0.0-0.4); BLOOD UREA NITROGEN 8 mg/dL (7-20); CALCIUM 9.1 mg/dL (8.4-10.2); CARBON DIOXIDE 25 mmol/L (22-30); CHLORIDE 109 mmol/L (98-107); CREATININE RESULT 0.92 mg/dL (0.52-1.25); GLUCOSE 104 mg/dL (75-110); POTASSIUM 4.2 mmol/L (3.6-5.0); SODIUM 140.5 mmol/L (137-145); TOTAL PROTEIN 6.1 g/dL (6.3-8.2)
[2017-02-17 11:17] LABS: LIPASE 144.2 U/L (23-300)
[2017-02-17] MEDS ORDERED: ERTAPENEM SODIUM INJ 1 GM VIAL IV ONE (13:22)
[2017-02-17 14:25] VITALS: BP 102/63
== END 2017-02-17 15:31 | disposition short-term general hospital (02) ==
LOC: ER 13:30
DX: K80.63 Calculus of gallbladder and bile duct with acute cholecystitis with obstruction (principal); R17 Unspecified jaundice; M54.9 Dorsalgia, unspecified
CPT/HCPCS: 96376; 99285; 96361; 96375; 96365; 36415; 87086; 84702; 83690; 85025; 85610; 80053; 81001; 76705; J1335; J1885; J2270; J2405 ×2; J7030

== ENCOUNTER 2017-07-31 15:36 | Emergency (ER) | payer MEDICAID, OTHER ==
--- NOTE | 2017-07-31 17:19 | ER Document Report ---
ED Neck/Back Problem - General Chief Complaint: Low Back Pain Stated Complaint: LOWER BACK PAINS Time Seen by Provider: 07/31/17 16:25 Mode of Arrival: Ambulatory Information source: Patient TRAVEL OUTSIDE OF THE [place] IN LAST 30 DAYS: No - HPI Patient complains to provider of: Pain, Lower back Notes: Patient is here with complaints of low back pain. The patient does a lot of lifting for her job. She states that for the last 2 weeks she has had progressively worsening low back pain. She denies any trauma or fall. She denies any bowel or bladder dysfunction. No blood thinners. No fever. No IV drug use. The pain does not radiate down her legs. She denies any numbness, tingling, weakness. She denies abdominal pain. She denies nausea, vomiting, diarrhea. She denies dysuria or hematuria. States that the pain is worse with movement and bending, certain positions seem to make it better. She has no chest pain or shortness of breath. She has no other complaints at this time. - Related Data Allergies/Adverse Reactions: No Known Allergies Allergy (Verified 07/31/17 15:56) Past Medical History - Social History Smoking Status: Never Smoker Chew tobacco use (# tins/day): No Frequency of alcohol use: None Drug Abuse: None Family History: None Patient has suicidal ideation: No Patient has homicidal ideation: No Pulmonary Medical History: Reports: Hx Asthma Renal/ Medical History: Denies: Hx Peritoneal Dialysis GI Medical History: Reports: Hx Gastroesophageal Reflux Disease - only Past Surgical History: Reports: Hx Section - x1 - Immunizations Hx Diphtheria, Pertussis, Tetanus Vaccination: Yes Review of Systems - Review of Systems -: Yes All other systems reviewed and negative Physical Exam - Vital signs Vitals: Temp Pulse Resp BP Pulse Ox 98.4 F 91 18 119/74 97 07/31/17 16:03 07/31/17 16:03 07/31/17 16:03 07/31/17 16:03 07/31/17 16:03 - Notes Notes: GENERAL: alert, cooperative, nontoxic, no distress. HEAD: normocephalic, atraumatic EYES: conjunctiva pink without discharge, no external redness or swelling. EARS: no external swelling, no external redness NOSE: atraumatic, no external swelling MOUTH/THROAT: mucous membranes moist and pink, posterior pharynx without erythema, swelling, exudate. No trismus or drooling. NECK: soft, supple, full range of motion, no meningismus. CHEST: no distress, lungs clear and equal throughout. No wheezing, rales, rhonchi. CARDIAC: regular rate and rhythm, no murmur, normal capillary refill, normal pulses. No peripheral edema noted. ABDOMEN: soft, nontender, no pusatile mass. BACK: No CVA tenderness. Mild tenderness across the entire low back. No midline tenderness step-offs or crepitus. No swelling. No redness. No rash. Slightly limited range of motion secondary to pain. EXTREMITIES: full range of motion of all extremities. No redness, no swelling. NEURO: alert and oriented A&O x 3, no focal deficits, full range of motion of all extremities. 5 out of 5 flexion and extension of the lower extremities bilaterally. Patellar and Achilles deep tendon reflexes are +2 bilaterally. Normal sensation with no saddle anesthesia. Patient can dorsiflex the great toes bilaterally. PYSCH: appropriate mood, affect. Patient is cooperative. SKIN: pink, warm, dry, no rash. Course - Re-evaluation Re-evalutation: 07/31/17 17:16 Patient is nontoxic appearing with stable vitals. She is here with complaints of low back pain for the last 2 weeks. The pain seems to be getting worse. Is worse with movement. She does a lot of heavy lifting at work. She has no sign of cauda equina, epidural abscess/bleed, AAA, discitis, osteomyelitis. She is a completely benign exam at this time. She had no trauma does not require x- ray imaging at this time. I offered her a shot of pain medication while she was here, she declined. She will be discharged home with a prescription for Voltaren and Zanaflex with instructions to follow-up with her primary care doctor if symptoms do not improve in the next week, sooner for worsening pain, high fever, difficulty controlling her bowels or bladder, abdominal pain, or for any further concerns. The patient's emergency department workup and current diagnosis were explained to the patient and or family. Follow-up instructions were provided. Medications if prescribed were discussed. Instructions for when to return to the emergency department including specific worrisome symptoms were discussed with the patient and/or family. - Vital Signs Vital signs: Temp Pulse Resp BP Pulse Ox 98.4 F 91 18 119/74 97 07/31/17 16:03 07/31/17 16:03 07/31/17 16:03 07/31/17 16:03 07/31/17 16:03 Discharge - Discharge Clinical Impression: Acute lumbar myofascial strain Qualifiers: Encounter type: initial encounter Qualified Code(s): S39.012A - Strain of muscle, fascia and tendon of lower back, initial encounter Condition: Stable Disposition: HOME, SELF-CARE Instructions: Low Back Pain ([facility]), Muscle Strain ([facility]) Additional Instructions: Take medications as prescribed. Rest. Stretch. Avoid heavy lifting. Follow- up with your doctor at the next available appointment. Follow-up sooner for increasing pain, high fever, difficulty controlling her bowels or bladder, persistent vomiting, abdominal pain, or for any further concerns. Prescriptions: Diclofenac Sodium [Voltaren 50 Mg Tablet.] 50 mg PO BID #20 tablet. Tizanidine HCl [Zanaflex 4 Mg Tablet] 4 mg PO BID PRN #10 tablet PRN Reason: Forms: Smoking Cessation Education Referrals: JEY OLVERA MD [Primary Care Provider] - Follow up as needed
[2017-07-31 17:48] VITALS: BP 97/58
== END 2017-07-31 17:42 | disposition home or self-care (01) ==
LOC: ER 15:36
DX: S39.012A Strain of muscle, fascia and tendon of lower back, initial encounter (principal); X50.9XXA Other and unspecified overexertion or strenuous movements or postures, initial encounter
CPT/HCPCS: 99283

== ENCOUNTER 2019-11-25 10:17 | Outpatient (CLI) | payer BC, MEDICAID ==
--- NOTE | 2019-11-25 13:04 | Non Stress Test Report ---
Non Stress Test Datetime Report Generated by CPN: 11/25/2019 13:04 DEMOGRAPHIC EGA NST: 34.4 INDICATION Indication for Study (NST) Other: GDM and Infant Known Down Syndrome Indication for Study (NST) Other: Down Syndrome VITAL SIGNS Temperature - NST: 98.6 Pulse - NST: 90 RESP - NST: 18 NBPSYS NST: 96 NBPDIA NST: 61 MONITORING Monitor Explained: Monitor Explained; Test Explained; Patient Verbalized Understanding Monitor Explained: Monitor Explained; Test Explained; Patient Verbalized Understanding Time on Monitor: 11/25/2019 11:20 Time on Monitor: 11/25/2019 10:37 Time off Monitor: 11/25/2019 11:50 Time off Monitor: 11/25/2019 11:55 NST Duration: 30 NST Duration: 78 NST INTERVENTIONS NST Interventions: PO Hydration; Meal Given NST Interventions: PO Hydration; Reposition Patient Physician Notified NST: Dr. Herrera Physician Notified NST: Dr. Herrera BABY A: [id number] BABY A Movement : Present Movement : Present Contraction Frequency : Irregular FHR Baseline : 120 Accelerations : 15X15 Accelerations : 15X15 Decelerations : None Decelerations : None Variability : Moderate 6-25bpm Variability : Moderate 6-25bpm NST Review: Meets Criteria for Reactive NST NST Review: Meets Criteria for Reactive NST NST Review and Verified By : WES Vogt NST Review and Verified By : WES VogtT Results: Reactive NST Results: Reactive NST REPORT Report Trigger: Send Report
--- NOTE | 2019-11-25 13:10 | RADIOLOGY REPORT (SQ) ---
EXAM DESCRIPTION: U/S PROFILE W/O STRESS IMAGES COMPLETED DATE/TIME: 11/25/2019 12:49 pm REASON FOR STUDY: BPP COMPARISON: None. TECHNIQUE: Limited choi-scale realtime and static images of the fetus to measure specified parameter s. LIMITATIONS: None. FINDINGS: HEART RATE: 135 beats per minute. ELLIE: 12.4 cm. MVP:5.6 x 5.6 cm BREATHING MOVEMENT: 2 points. MOVEMENT: 2 points. POSTURE AND TONE: 2 points. QUALITATIVE ELLIE: 2 points. OTHER: No other significant finding. IMPRESSION: BIOPHYSICAL PROFILE: 12/25. Trimester of : Third - 28 weeks to delivery COMMENT: BREATHING MOVEMENTS: 2 POINTS: PRESENT 0 POINTS: ABSENT MOTION: 2 POINTS: PRESENT 0 POINTS: ABSENT TONE: 2 POINTS: PRESENT 0 POINTS: ABSENT AMNIOTIC FLUID VOLUME: 2 POINTS: LARGEST POCKET GREATER THAN 2 CM DEPTH. 0 POINTS: NO POCKET OF 2 CM. TECHNICAL DOCUMENTATION: JOB ID: [id number] [employer]- All Rights Reserved Reading location - IP/workstation name: [email or web address]
== END 2019-11-25 13:04 | disposition home or self-care (01) ==
LOC: LC 10:17
PROVIDERS: ATTEND Obstetrics & Gynecology
DX: O36.8330 Maternal care for abnormalities of the fetal heart rate or rhythm, third trimester, not applicable or unspecified (principal); O24.419 Gestational diabetes mellitus in pregnancy, unspecified control; O35.1XX0 Maternal care for (suspected) chromosomal abnormality in fetus, not applicable or unspecified; Q90.9 Down syndrome, unspecified; Z3A.34 34 weeks gestation of pregnancy
CPT/HCPCS: 59025; 76819

== ENCOUNTER 2019-12-18 08:12 | Outpatient (CLI) | payer BC, MEDICAID ==
[~2019-12-18 08:12] MED LIST: FERRIC CARBOXYMALTOSE 750 MG in NORMAL SALINE 250 ML IV PRN; NORMAL SALINE 250 ML IV PRN
[2019-12-18 08:31] VITALS: BP 123/56
== END 2019-12-18 09:30 | disposition home or self-care (01) ==
LOC: II 08:12 → 5TH 08:14 → II 09:30
PROVIDERS: ATTEND Advanced Practice Midwife
DX: O99.019 Anemia complicating pregnancy, unspecified trimester (principal)
CPT/HCPCS: 96365; J7050; J1439

== ENCOUNTER 2019-12-21 17:05 | Outpatient (CLI) | payer BC, MEDICAID ==
--- NOTE | 2019-12-21 18:19 | Non Stress Test Report ---
Non Stress Test Datetime Report Generated by CPN: 12/21/2019 18:19 DEMOGRAPHIC EGA NST: 38.2 INDICATION Indication for Study (NST) Other: IUP @ 38.2 wks, abnormal AFP VITAL SIGNS Temperature - NST: 98.6 Pulse - NST: 93 RESP - NST: 18 NBPSYS NST: 134 NBPDIA NST: 61 MONITORING Monitor Explained: Monitor Explained; Test Explained; Patient Verbalized Understanding Monitor Explained: Monitor Explained; Test Explained; Patient Verbalized Understanding Time on Monitor: 12/21/2019 17:16 Time off Monitor: 12/21/2019 18:17 NST Duration: 61 NST INTERVENTIONS NST Interventions: PO Hydration; Reposition Patient Physician Notified NST: Dr. Hernandez BABY A: [id number] BABY A Movement : Present Contraction Frequency : 0 FHR Baseline : 115 Accelerations : 15X15 Decelerations : None Variability : Moderate 6-25bpm NST Review: Meets Criteria for Reactive NST NST Review and Verified By : Panda Reina RN NST Results: Reactive NST REPORT Report Trigger: Send Report
== END 2019-12-21 18:32 | disposition home or self-care (01) ==
LOC: LC 17:05
PROVIDERS: ATTEND Obstetrics & Gynecology
DX: Z36.1 Encounter for antenatal screening for raised alphafetoprotein level (principal); Z3A.38 38 weeks gestation of pregnancy
CPT/HCPCS: 59025

== ENCOUNTER 2019-12-27 05:07 | Inpatient (IN) | payer BC, MEDICAID ==
[2019-12-27] MEDS ORDERED: CITRIC ACID/SODIUM CITRATE ORAL SOLN 15 ML UDCUP ONE (05:45)
[2019-12-27] MEDS ORDERED: CEFAZOLIN 2 GM/D5W RTU 2 GM/50 ML RTUPB IV ONE (05:45)
[2019-12-27] MEDS ORDERED: RINGERS SOLUTION,LACTATED 1,000 ML IV ONE (05:58)
[2019-12-27] MEDS ORDERED: RINGERS SOLUTION,LACTATED 1,000 ML IV PRN ×2 (05:58→08:59)
[2019-12-27] MEDS ORDERED: OXYTOCIN 10 UNIT/ML VIAL ONE (06:06)
[2019-12-27] MEDS ORDERED: KETOROLAC TROMETHAMINE INJ/PF 30 MG/1 ML SDV ONE ×2 (06:06→09:09)
[2019-12-27] MEDS ORDERED: FENTANYL CITRATE INJ/PF 100 MCG/2 ML AMPUL ONE (06:06)
[2019-12-27] MEDS ORDERED: ONDANSETRON HCL INJ/PF 4 MG/2 ML SDV ONE (06:07)
[2019-12-27] MEDS ORDERED: MIDAZOLAM 2 MG/2 ML INJ ONE (06:07)
[2019-12-27] MEDS ORDERED: ACETAMINOPHEN 1,000 MG/100 ML RTUPB IV ONE (06:07)
[2019-12-27] MEDS ORDERED: PHENYLEPHRINE HCL INJ/PF 10 MG/1 ML SDV ONE (06:07)
[2019-12-27] MEDS ORDERED: EPHEDRINE SULFATE INJ 50 MG/1 ML AMPULE ONE (06:07)
[2019-12-27 06:16] LABS: APPEARANCE,URINE CLEAR; BILIRUBIN,URINE NEGATIVE (NEGATIVE); COLOR,URINE STRAW; GLUCOSE, URINE NEGATIVE (NEGATIVE); KETONES,URINE NEGATIVE (NEGATIVE); LEUKOCYTE ESTERASE,URINE NEGATIVE (NEGATIVE); NITRITE,URINE NEGATIVE (NEGATIVE); PROTEIN,URINE NEGATIVE (NEGATIVE); URINE SPECIFIC GRAVITY 1.005; UROBILINOGEN,URINE NEGATIVE mg/dL (<2.0)
--- NOTE | 2019-12-27 06:20 | Admission Physical ---
Datetime Report Generated by CPN: 12/27/2019 06:20 CURRENT ADMISSION Chief Complaint: Uterine Contractions Admit Impression : Term, Intrauterine ; Active Labor; Repeat Section Admit Plan: Admit to Unit; Initiate Section Protocol ALLERGIES Medication Allergies: No Medication Allergies: No Known Allergies (12/27/2019) Latex: No Latex Allergies OBSTETRICAL HISTORY EDC: 01/02/2020 00:00 : 3 Para: 2 Term: 1 : 1 SAB: 0 IAB: 0 Ectopic: 0 Livin Cesareans: 2 VBACs: 0 Multiple Births: 0 Gestational Diabetes: Yes Rh Sensitization: No Incompetent Cervix: No JOHANNY: No Infertility: No ART Treatment: No Uterine Anomaly: No IUGR: No Hx Previous C/S: No Macrosomia: No Hx Loss/Stillborn: No PIH: No Hx : No Placenta Previa/Abruption: No Depression/PP Depression: No PTL/PROM: No Post Hemorrhage: No Current Procedures: Ultrasound; NST Obstetrical History Comments: G1- 2013, emergent G2- 34 week G3- current SEE RECORDS Alcohol: No Marijuana : No Cocaine: No Other Illicit Drugs: No Cigarettes: Never Smoker. [id number] MEDICAL HISTORY Diabetes: Yes Diabetes Type: Gestational Diabetes Blood Transfusion: No Pulmonary Disease (Asthma, TB): Yes Breast Disease: No Hypertension: No Index Editor Surgery: No Heart Disease: No Hosp/Surgery: Yes Autoimmune Disorder: No Anesthetic Complications: No Kidney Disease: Yes Abnormal Pap Smear: No Neuro/Epilepsy: No Psychiatric Disorders: No Other Medical Diseases: No Hepatitis/Liver Disease: No Significant Family History: No Varicosities/Phlebitis: No Trauma/Violence : No Thyroid Dysfunction: No Medical History Comments: UTI with previous , asthma - has rescue inhaler, x2, cholecystectomy 2016 INFECTIOUS HISTORY Gonorrhea: No Genital Herpes: No Chlamydia: No Tuberculosis: No Syphilis: No Hepatitis: No HIV/AIDS Exposure: No Rash or Viral Illness: No HPV: No PHYSICAL EXAM General: Normal HEENT: Normal Neurologic: Normal Thyroid: Normal Heart: Normal Lungs: Normal Breast: Normal Back: Normal Abdomen: Normal Genitourinary Exam: Normal Extremities: Normal DTRs: Normal Pelvic Type: Adequate Vital Signs: Reviewed; Within Normal Limits VAGINAL EXAM Dilatation: 5 Effacement: 50 Station: -1 Contraction Comments: regular MEMBRANES Membranes: Intact FETUS A EGA: 39.1 Monitoring: External US FHR- Baseline: 135 Variability: Moderate 6-25bpm Accelerations: 15X15 Decelerations: None Presentation: Vertex Admit Comment: 24 yo [id number] at 39.2 wks EGA who presented in active labor dilated to 5 cm and history of prior CS x2 . also complicated by T risomy 21 this female fetus, A1GDM and undesired fertility -Admit to LDR -NPO and IVFs. LR bolus of 1 liter, then continuous at 125cc/hr -CEFM and toco -Abdominal prep -Ancef 2 gms IV prior to OR -Undesired fertility -Plan for repeat CS and bilateral tubal ligation PLANS FOR LABOR AND DELIVERY Labor and Delivery: None Feeding Preference: Breast Benefit of Breast Feed Discussed: Yes Circumcision: N/A INFORMED CONSENT Informed Consent Obtained: Section Delivery; Sterilization; Risks, Benefits and Alternatives Discussed Signature: with User ID: Emilia : with User ID: Emilia
[2019-12-27 06:50] LABS: ABSOLUTE EOSINOPHILS # (AUTO) 0.1 10^3/uL (0.0-0.6); ABSOLUTE LYMPHOCYTES (AUTO) 1.6 10^3/uL (0.5-4.7); ABSOLUTE MONOCYTES (AUTO) 0.4 10^3/uL (0.1-1.4); ABSOLUTE NEUT (AUTO) 4.9 10^3/uL (1.7-8.2); BASOPHILS % (AUTO) 0.6 % (0-2); HEMATOCRIT 32.3 % (36.0-47.0); HEMOGLOBIN 10.9 g/dL (12.0-15.5); LYMPHOCYTES % (AUTO) 22.9 % (13-45); MEAN CORPUSCULAR HEMOGLOBIN 26.5 pg (27.0-33.4); MEAN CORPUSCULAR HGB CONC 33.6 g/dL (32.0-36.0); MEAN CORPUSCULAR VOLUME 79 fl (80-97); MONOCYTES % (AUTO) 5.3 % (3-13); PLATELET COUNT 266 10^3/uL (150-450); RED CELL DISTRIBUTION WIDTH 19.9 % (11.5-14.0); SEGMENTED NEUTROPHILS % (AUTO) 70.2 % (42-78); TOTAL CELLS COUNTED % (AUTO) 100 %
[2019-12-27 06:52] LABS: URINE AMPHETAMINES SCREEN NEGATIVE; URINE BARBITURATES SCREEN NEGATIVE; URINE BENZODIAZEPINES SCREEN NEGATIVE; URINE COCAINE SCREEN NEGATIVE; URINE MARIJUANA (THC) SCREEN NEGATIVE; URINE METHADONE SCREEN NEGATIVE; URINE PHENCYCLIDINE SCREEN NEGATIVE
[2019-12-27] MEDS ORDERED: OXYTOCIN/0.9 % SODIUM CHLORIDE 30 UNIT/500 ML RTUINJ ONE (08:48)
[2019-12-27] MEDS ORDERED: MEASLES,MUMPS&RUBELLA VACC/PF 0.5 ML VIAL SUBCUT PRN (08:59)
[2019-12-27] MEDS ORDERED: PROMETHAZINE HCL INJ 25 MG/1 ML VIAL IV PRN (08:59)
[2019-12-27] MEDS ORDERED: DIPH/PERTUSS(ACELL)/TETANUS VAC/PF 0.5 ML SYR (>=10YO) IM PRN (08:59)
[2019-12-27] MEDS ORDERED: OXYTOCIN/0.9 % SODIUM CHLORIDE 30 UNIT/500 ML RTUINJ IV PRN (08:59)
[2019-12-27] MEDS ORDERED: ACETAMINOPHEN 1,000 MG/100 ML RTUPB IV PRN (08:59)
[2019-12-27] MEDS ORDERED: ACETAMINOPHEN 325 MG TABLET PO PRN (08:59)
[2019-12-27] MEDS ORDERED: HYDROMORPHONE HCL INJ/PF 2 MG/ML AMPULE ONE (09:37)
--- NOTE | 2019-12-27 09:38 | Operative Report ---
Operative Report DATE OF SURGERY: 12/27/19 PREOPERATIVE DIAGNOSIS: Prior section x2. Intrauterine at 3 9.2 weeks EGA. Undesired POSTOPERATIVE DIAGNOSIS: Same as above OPERATION: Repeat section and bilateral tubal ligation SURGEON: JAZIEL MCFARLAND ANESTHESIA: Spinal TISSUE REMOVED OR ALTERED: Placenta COMPLICATIONS: None ESTIMATED BLOOD LOSS: 800 INTRAOPERATIVE FINDINGS: Normal appearing uterus, bilateral fallopian tubes and ovaries. Female infant iwth Apgars of 8,9 at one and 5 minutes respectfully. Infant was crying at delivery and orally suctioned. handed off to nursery staff after cord clamped and cut. PROCEDURE: IV fluids: per anesthesia record Urinary output: 300 cc Position: To recovery room in stable condition Description of procedure: The patient was taken to the operating room and spinal anesthesia was administered and found to be adequate. She was then placed on the OR table in the supine position with a slight leftward tilt. Patient was prepped and draped in usual sterile fashion. Ancef 2 gms was given IV prior to the procedure for infection prophylaxis. Timeout was taken. A Pfannenstiel skin incision was then made approximately 3 cm above the pubic symphysis and carried down to level the rectus fascia. The rectus fascia was then nicked in the midline with a scalpel and the fascial incision was extended laterally with use of curved Bran scissors. The rectus fascia was then grasped with 2 Kocker clamps elevated and the underlying rectus muscle was dissected off both bluntly and sharply. Scar tissue noted between rectus fascia and muscle layer. Any bleeding controlled with cautery. The rectus muscles were then split in the midline and the peritoneum was entered. The peritoneal incision was then extended by manually stretching the peritoneum. The bladder blade was positioned. The bladder was noted to be out of harm's way. A scalpel was then used in the lower uterine for the hysterotomy, slowly until amniotomy was obtained a large amount of clear fluid was noted. The uterine incision was then manually stretched. The was noted to be in vertex postion but engaged in the pelvis. The head was delivered with minmal difficulty. The shoulders and the rest of the body followed immediately. The cord was cut clamped and the infant was handed off to the nurse awaiting. Infant was crying prior to hand off. The placenta was manually delivered. Using a lap gauze the uterus was cleared of all clots and debris. The uterus was then exteriorized and a bladder blade was repositioned. The uterine incision was then closed with 0 Chromic suture in a running locked fashion. A second layer of the same suture was used in a running locked imbricated fashion. The uterine incision was inspected and noted to be hemostatic. Retractor was removed. The posterior aspect of the uterus was then inspected and anatomy was seen as above. The right fallopian tube was identified and traced to the fimbriated end. A filshie clip was placed approximately 2 cm from the uterine cornu. Clip surrounded the tube in its entirety. Blanching noted and hemostasis. The left fallopian tube was identified and traced to the fimbriated end. A filshie clip was placed approximately 2 cm from the uterine cornu. Clip surrounded the tube in its entirety. Blanching noted and hemostasis. The uterus was returned to its normal anatomic position within the abdominal cavity. Warm saline irrigation was used to clear all clots and debris from the abdomen. The uterine incision was inspected once more and noted to remain hemostatic. The bladder blade was removed and the peritoneum was closed with 2-0 chromic in a running fashion. The rectus muscles were then reapproximated and the rectus fascia was closed with a #1 PDS in a running fashion. The subcutaneous tissue was then inspected and any bleeding was controlled with Bovie electrocautery. The subcutaneous tissue was then closed with 2-0 Plain Gut suture in a running fashion. The skin was then closed with 3-0 Monocryl in a running subcuticular fashion. The skin incision was then clean dried and Dermabond was applied over the skin incision. All instrument sponge and needle counts were correct x3 for the procedure the patient tolerated the procedure well. She will proceed to recovery room in stable condition
--- NOTE | 2019-12-27 09:41 | PDOC DELIVERY SUMMARY ---
Delivery Summary - Maternal Hx : III Hx Para: II Hx # Term Pregnancies: 2 Hx # Pregnancies: 0 Hx Total # of Abortions (Sponateous & Elective): 0 Number of Living Children: 2 Gestational Age: 39.2 Risk Factors: Gestational Diabetes, Other - Trisomy 21 - Delivery Presentation: Vertex Support Person Present: Yes Location: OR : Repeat Placenta: Within Normal Limits Placenta Description: Manually delivered intact Number of Vessels (Cord): 3 Nuchal Cord: No Estimated Blood Loss: 800 - Medications Type of Anesthesia:: Spinal - Delivery Personnel THERAPIST PHYS: LAMAR PAUL RN: IVORY ORO MD: JAZIEL MCFARLAND
[2019-12-27] MEDS: HYDROMORPHONE HCL INJ/PF 2 MG/ML AMPULE IV PRN ×2 (09:51→22:04)
[2019-12-27] MEDS ORDERED: DOCUSATE SODIUM 100 MG CAPSULE ONE (10:34)
[2019-12-27] MEDS ORDERED: PRENATAL VITAMIN W DHA CAPSULE PO ONE (10:34)
[2019-12-27] MEDS: DOCUSATE SODIUM 100 MG CAPSULE PO SCH ×2 (10:35→17:13)
[2019-12-27] MEDS: PRENATAL VITAMIN W DHA CAPSULE PO SCH (10:36)
--- NOTE | 2019-12-27 12:47 | Warning Signs in Babies ---
VOD Warning Signs Datetime Report Generated by N: 12/27/2019 12:46 VOD#608 -Warning Signs in Babies: Viewed with Parent(s)/Family (11/25/2019 10:49:Delia Garcia RN)
--- NOTE | 2019-12-27 12:54 | Delivery Summary ---
Del Sum A-C Datetime Report Generated by CPN: 12/27/2019 12:54 DELIVERY PERSONNEL DELIVERY PERSONNEL: [id number] Delivery Doctor:: Aleida Herrera MD Anesthesiologist:: Dr Jesus Mayen FUR PLUCKER:: Richard Torres CRNA (Annotations: Data stored by [facility] on behalf of user) Labor and Delivery Nurse:: Stewart Aguilar RNhandhole machine operator Nurse:: Delia Garcia RN Product Mgmt Dev Manager:: Stewart Aguilar RN Hair Tinter/HAND INSERTER OPERATOR: Belia Wilkerson CST Hair Tinter/HAND INSERTER OPERATOR: Aishwarya Hernández CST MATERNAL INFORMATION Delivery Anesthesia: Spinal Medications After Delivery: Pitocin 30 Units in 500ml NS/D5W Delivery QBL: 690 Maternal Complications: None LABOR SUMMARY EDC: 01/02/2020 00:00 No. Babies in Womb: 1 Attempted: No LABOR INFORMATION Reason for Induction: Not Applicable Onset of Labor: 12/27/2019 05:00 Oxytocin: N/A Group B Beta Strep: negative Antibiotics # of Doses: 0 Steroids Given: None Reason Steroids Not Administered: Not Applicable MEMBRANES Membranes Rupture Method: Artificial Rupture of Membranes: 12/27/2019 07:39 Length of Rupture (hr): 0.00 Amniotic Fluid Color: Clear Amniotic Fluid Amount: Moderate Amniotic Fluid Odor: None STAGES OF LABOR Stage 3 hr: 0 Stage 3 min: 1 Total Time in Labor hr: 2 Total Time in Labor min: 40 VAGINAL DELIVERY Episiotomy: None Laceration #1: None Laceration Extension #1: N/A Laceration Repair: Not Applicable Sponge Count Correct: N/A Sharps Count Correct: N/A CSECTION DELIVERY Primary Indication: Repeat Elective Secondary Indication: N/A CSection Urgency: Non-Scheduled CSection Incidence: Repeat Labor: Labor Elective: N/A CSection Incision: Lower Uterine Transverse Other Sterilization Procedure: Felshie clip BABY A INFORMATION Infant Delivery Date/Time: 12/27/2019 07:39 Method of Delivery: Nurse Controlled Delivery: No Born in Route : No : N/A Forceps: N/A Vacuum Extraction: N/A Shoulder Dystocia : No PRESENTATION/POSITION BABY A Presentation: Cephalic Cephalic Presentation: Vertex Breech Presentation: N/A PLACENTA INFORMATION BABY A Placenta Delivery Time : 12/27/2019 07:40 Placenta Method of Delivery: Manual Removal Placenta Status: Delivered SCORES BABY A Heart Rate 1 min: >100 bpm Resp Effort 1 min: Good Cry Reflex Irritability 1 min: Cough or Sneeze or Pulls Away Muscle Tone 1 min: Some Flexion of Extremities Color 1 min: Body Elsa, Extremities Blue Resuscitation Effort 1 min: Tactile Stimulation SCORE 1 MIN: 8 Heart Rate 5 min: >100 bpm Resp Effort 5 min: Good Cry Reflex Irritability 5 min: Cough or Sneeze or Pulls Away Muscle Tone 5 min: Active Motion Color 5 min: Body Elsa, Extremities Blue SCORE 5 MIN: 9 INFANT INFORMATION BABY A Gestational Age at Delivery: 39.1 Gestational Status: Full Term- 39- 40.6 Weeks Infant Outcome : Liveborn Condition : Stable Infant Sex: Female IDENTIFICATION BABY A Infant Verification Date/Time: 12/27/2019 07:40 ID Band Number: [id number] Mother's Name Verified: Yes Infant RN Verifying Infant: Christina Jeff, RN and SMigel Garcia, RN WEIGHT/LENGTH BABY A Infant Birthweight (gm): 3885 Infant Weight (lb): 8 Weight (oz): 9 Infant Length (in): 20.00 Length (cm): 50.80 CORD INFORMATION BABY A No. Cord Vessels: 3 Nuchal Cord : N/A Cord Blood Taken: Yes-For Storage (Mom's Blood type +) Suction: None ASSESSMENT BABY A Complications: None Skin to Skin: No Skin to Skin Time (min): 0 Care By: J. Monterroso, RN BABY B INFORMATION : N/A
[2019-12-27] MEDS ORDERED: OXYCODONE-ACETAMINOPHEN 5-325 MG TABLET ONE (13:03)
[2019-12-27] MEDS: OXYCODONE-ACETAMINOPHEN 5-325 MG TABLET PO PRN ×2 (13:04→17:14)
[2019-12-27] MEDS ORDERED: NORMAL SALINE 500 ML IV PRN (14:17)
[2019-12-27] MEDS: KETOROLAC TROMETHAMINE INJ/PF 30 MG/1 ML SDV IV SCH (17:14)
[2019-12-27] MEDS: SIMETHICONE 80 MG TAB.CHEW PO PRN (22:07)
[2019-12-28] MEDS: KETOROLAC TROMETHAMINE INJ/PF 30 MG/1 ML SDV IV SCH (02:14)
[2019-12-28] MEDS: OXYCODONE-ACETAMINOPHEN 5-325 MG TABLET PO PRN ×3 (06:26→17:53)
[2019-12-28] MEDS: SIMETHICONE 80 MG TAB.CHEW PO PRN (06:26)
[2019-12-28 08:06] LABS: HEMATOCRIT 29.2 % (36.0-47.0); HEMOGLOBIN 9.9 g/dL (12.0-15.5); MEAN CORPUSCULAR HGB CONC 33.9 g/dL (32.0-36.0); MEAN CORPUSCULAR VOLUME 80 fl (80-97); PLATELET COUNT 235 10^3/uL (150-450); RED BLOOD COUNT 3.66 10^6/uL (3.72-5.28); RED CELL DISTRIBUTION WIDTH 20.8 % (11.5-14.0); WHITE BLOOD COUNT 6.5 10^3/uL (4.0-10.5)
--- NOTE | 2019-12-28 08:47 | PDOC PROGRESS REPORT ---
Subjective-OB Progress Note for:: 12/28/19 Physical Exam (OB) Vital Signs: Temp Pulse Resp BP Pulse Ox 98.2 F 93 18 100/57 L 98 12/28/19 03:54 12/28/19 03:54 12/28/19 03:54 12/28/19 03:54 12/28/19 03:54 Intake & Output 12/27/19 12/28/19 12/29/19 06:59 06:59 06:59 Output Total 1900 Balance -1900 Weight 143.4 kg - General General Appearance: Sleeping/easily aroused - PIH/Pre-Eclampsia DTR's: 1 + Clonus: Negative Headache: Absent Epigastric Pain: No Visual Changes: No - Dressing Removed: No - Opsite Incision: Well Approximated Closure Type: Surgical Glue - Maternal Morbidity Maternal Morbidity (serious complications experinced by the mother associated with labor and delivery: None of the above - Lochia Lochia Amount: Small 10-25 ml Lochia Color: Rubra/Red - Abdomen Description: Tender, Soft Hernia Present: No Bowel Sounds: Normoactive Stool: No Fundal Description: Firm, Midline Fundal Height: u/u - u/2 Objective-Diagnostic Laboratory: 12/28/19 07:31 12/28/19 07:31 WBC 6.5 RBC 3.66 L Hgb 9.9 L Hct 29.2 L MCV 80 MCH 27.0 MCHC 33.9 RDW 20.8 H Plt Count 235 Assessment and Plan(PN) - Time Spent with Patient Time with patient: 15-25 minutes - Disposition Anticipated Discharge Disposition: Home, Self Care Anticipated Discharge Timeframe: within 36 hours
[2019-12-28] MEDS: PRENATAL VITAMIN W DHA CAPSULE PO SCH (09:41)
[2019-12-28] MEDS: IBUPROFEN 800 MG TABLET PO SCH ×2 (09:41→17:50)
[2019-12-28] MEDS: DOCUSATE SODIUM 100 MG CAPSULE PO SCH ×2 (09:41→17:50)
[2019-12-29] MEDS: IBUPROFEN 800 MG TABLET PO SCH ×2 (02:01→09:47)
[2019-12-29] MEDS: DOCUSATE SODIUM 100 MG CAPSULE PO SCH (09:47)
[2019-12-29] MEDS: PRENATAL VITAMIN W DHA CAPSULE PO SCH (09:47)
[2019-12-29] MEDS: OXYCODONE-ACETAMINOPHEN 5-325 MG TABLET PO PRN (11:06)
--- NOTE | 2019-12-29 11:42 | PDOC DISCHARGE SUMMARY ---
Impression - Admit/DC Date/PCP Admission Date/Primary Care Provider: 12/27/19 05:51 JAZIEL MCFARLAND MD Discharge Date: 12/29/19 - Discharge Diagnosis (1) Asthma Is this a current diagnosis for this admission?: Yes (2) Delivery by elective caesarean section Is this a current diagnosis for this admission?: Yes (3) Gestational diabetes Is this a current diagnosis for this admission?: Yes (4) Obesities, morbid Is this a current diagnosis for this admission?: Yes - Additional Information Resuscitation Status: Full Code Discharge Diet: Regular Discharge Activity: Balance Activity w/Rest, No Lifting Over 10 Pounds, No Lifting/Push/Pulling, Pelvic Rest, Slowly Increase Activity, No tub bath Referrals: JAZIEL MCFARLAND MD [Primary Care Provider] - Prescriptions: Oxycodone HCl/Acetaminophen [Percocet 5-325 mg Tablet] 1 tab PO Q4HP PRN #30 tablet PRN Reason: For Pain Scale 3-5 Ibuprofen [Motrin 800 mg Tablet] 800 mg PO Q8HP PRN #60 tablet PRN Reason: Home Medications: Pnv 112/Iron/Folic/Om3/Dha/Epa [Vitafol Gummies] 3 each PO DAILY 01/08/17 Ibuprofen [Motrin 800 mg Tablet] 800 mg PO Q8HP PRN #60 tablet 12/29/19 Oxycodone HCl/Acetaminophen [Percocet 5-325 mg Tablet] 1 tab PO Q4HP PRN #30 tablet 12/29/19 HPI Gestational Age: 39.2 Reason(s) for Admission: Onset of Labor Procedures: NST Intrapartum Procedure(s): : Low Cervical, Transverse, Tubal Ligation Hospital Course Maternal Morbidity (serious complications experinced by the mother associated with labor and delivery: None of the above Results Laboratory Results: WBC 6.5 10^3/uL (4.0-10.5) 12/28/19 07:31 RBC 3.66 10^6/uL (3.72-5.28) L 12/28/19 07:31 Hgb 9.9 g/dL (12.0-15.5) L 12/28/19 07:31 Hct 29.2 % (36.0-47.0) L 12/28/19 07:31 MCV 80 fl (80-97) 12/28/19 07:31 MCH 27.0 pg (27.0-33.4) 12/28/19 07:31 MCHC 33.9 g/dL (32.0-36.0) 12/28/19 07:31 RDW 20.8 % (11.5-14.0) H 12/28/19 07:31 Plt Count 235 10^3/uL (150-450) 12/28/19 07:31 Lymph % (Auto) 22.9 % (13-45) 12/27/19 06:21 [place]ton % (Auto) 5.3 % (3-13) 12/27/19 06:21 Eos % (Auto) 1.0 % (0-6) 12/27/19 06:21 Baso % (Auto) 0.6 % (0-2) 12/27/19 06:21 Absolute Neuts (auto) 4.9 10^3/uL (1.7-8.2) 12/27/19 06:21 Absolute Lymphs (auto) 1.6 10^3/uL (0.5-4.7) 12/27/19 06:21 Absolute Monos (auto) 0.4 10^3/uL (0.1-1.4) 12/27/19 06:21 Absolute Eos (auto) 0.1 10^3/uL (0.0-0.6) 12/27/19 06:21 Absolute Basos (auto) 0.0 10^3/uL (0.0-0.2) 12/27/19 06:21 Seg Neutrophils % 70.2 % (42-78) 12/27/19 06:21 Urine Color STRAW 12/27/19 05:18 Urine Appearance CLEAR 12/27/19 05:18 Urine pH 7.0 (5.0-9.0) 12/27/19 05:18 Ur Specific Vendor 1.005 12/27/19 05:18 Urine Protein NEGATIVE mg/dL (NEGATIVE) 12/27/19 05:18 Urine Glucose (UA) NEGATIVE mg/dL (NEGATIVE) 12/27/19 05:18 Urine Ketones NEGATIVE mg/dL (NEGATIVE) 12/27/19 05:18 Urine Blood NEGATIVE (NEGATIVE) 12/27/19 05:18 Urine Nitrite NEGATIVE (NEGATIVE) 12/27/19 05:18 Urine Bilirubin NEGATIVE (NEGATIVE) 12/27/19 05:18 Urine Urobilinogen NEGATIVE mg/dL (<2.0) 12/27/19 05:18 Ur Leukocyte Esterase NEGATIVE (NEGATIVE) 12/27/19 05:18 Urine Ascorbic Acid NEGATIVE (NEGATIVE) 12/27/19 05:18 Urine Opiates Screen NEGATIVE 12/27/19 05:18 Urine Methadone Screen NEGATIVE 12/27/19 05:18 Ur Barbiturates Screen NEGATIVE 12/27/19 05:18 Ur Phencyclidine Scrn NEGATIVE 12/27/19 05:18 Ur Amphetamines Screen NEGATIVE 12/27/19 05:18 U Benzodiazepines Scrn NEGATIVE 12/27/19 05:18 Urine Cocaine Screen NEGATIVE 12/27/19 05:18 U Marijuana (THC) Screen NEGATIVE 12/27/19 05:18 RPR NONREACTIVE (NONREACTIVE) 12/27/19 06:21 Blood Type B POSITIVE 12/27/19 06:21 Antibody Screen NEGATIVE 12/27/19 06:21 Plan Plan of Treatment: f/u at [facility] Saturday for incision check Time Spent: Less than 30 Minutes
[2019-12-29 12:02] VITALS: BP 117/53
== END 2019-12-29 13:30 | disposition home or self-care (01) | DRG 785 ==
LOC: LC 05:07 → LR 05:51 → 2S 15:40
PROVIDERS: ADMIT Obstetrics & Gynecology; ATTEND Obstetrics & Gynecology
PROC: 10D00Z1 Extraction of Products of Conception, Low, Open Approach (ICD-10-PCS; principal; 2019-12-27)
PROC: 0UL70CZ Occlusion of Bilateral Fallopian Tubes with Extraluminal Device, Open Approach (ICD-10-PCS; 2019-12-27)
DX: O24.420 Gestational diabetes mellitus in childbirth, diet controlled (principal); O34.211 Maternal care for low transverse scar from previous cesarean delivery; O99.52 Diseases of the respiratory system complicating childbirth; J45.909 Unspecified asthma, uncomplicated; O28.5 Abnormal chromosomal and genetic finding on antenatal screening of mother; N85.8 Other specified noninflammatory disorders of uterus; Z3A.39 39 weeks gestation of pregnancy; Z37.0 Single live birth; Z30.2 Encounter for sterilization; O99.214 Obesity complicating childbirth; E66.01 Morbid (severe) obesity due to excess calories; Z90.49 Acquired absence of other specified parts of digestive tract
CPT/HCPCS: 1961; 36415; 80307; 81005; 85025; 85027; 86592; 86850; 86900; 86901; 88307; 94799; C1758; J0131; J0690; J1170; J1885; J2250; J2370; J2405; J2590; J3010; J3490; J7120

== ENCOUNTER → 2020-01-20 | Outpatient (CLI) | payer BC, MEDICAID ==
--- NOTE | 2020-01-20 17:23 | RADIOLOGY REPORT (SQ) ---
EXAM DESCRIPTION: CT ABD/PELVIS ORAL ONLY IMAGES COMPLETED DATE/TIME: 01/20/2020 3:43 pm REASON FOR STUDY: (O75.4)OTHER COMPLICATIONS OF OBSTETRIC SURGERY AND PROCEDURES O75.4 OTHER COMPLI CATIONS OF OBSTETRIC SURGERY AND PROCEDURE. Bump on the scar in the midline. 20 days post . COMPARISON: None. TECHNIQUE: CT scan of the abdomen and pelvis performed without intravenous or oral contrast. Images reviewed with lung, soft tissue, and bone windows. Reconstructed coronal and sagittal MPR images revi ewed. All images stored on PACS. All CT scanners at this facility use dose modulation, iterative reconstruction, and/or weight based d osing when appropriate to reduce radiation dose to as low as reasonably achievable (ALARA). [facility]: Dose Right [facility]: CareDose [facility]: Dose Right [facility]: Teradose 4D [facility]: [employer] RADIATION DOSE: CT Rad equipment meets quality standard of care and radiation dose reduction techniq ues were employed. CTDIvol: 21.8 mGy. DLP: 1177 mGy-cm.mGy. LIMITATIONS: None. FINDINGS: LOWER CHEST: No significant findings. No nodules or infiltrates. NON-CONTRASTED LIVER, SPLEEN, ADRENALS: Evaluation limited by lack of IV contrast. No identified sign ificant masses. Mild splenomegaly likely related to state. No perisplenic fluid. No adr enal mass. PANCREAS: No masses. No peripancreatic inflammatory changes. GALLBLADDER: No identified stones by CT criteria. No inflammatory changes to suggest cholecystitis. RIGHT KIDNEY AND URETER: No suspicious masses. Assessment limited by lack of IV contrast. No signif icant calcifications. No hydronephrosis or hydroureter. LEFT KIDNEY AND URETER: No suspicious masses. Assessment limited by lack of IV contrast. No signifi cant calcifications. No hydronephrosis or hydroureter. AORTA AND RETROPERITONEUM: No aneurysm. No retroperitoneal masses or adenopathy. BOWEL AND PERITONEAL CAVITY: No obvious masses or inflammatory changes. No free fluid. APPENDIX: Normal. PELVIS, BLADDER, AND ABDOMINAL WALL:Within the anterior abdominal wall there is a 3.5 x 8 cm postoper ative seroma. No surrounding inflammatory change. Mildly enlarged uterus consistent with state. No adnexal mass. No free fluid in the pelvis. Urinary bladder is unremarkable. BONES: No significant findings. OTHER: No other significant finding. IMPRESSION: Postoperative seroma in the subcutaneous soft tissues overlying the scar. No surrounding inflammatory change to suggest infection. COMMENT: Quality ID # [id number]: Final reports with documentation of one or more dose reduction techniques (e.g., Automated exposure control, adjustment of the mA and/or kV according to patient size, use of iterative reconstruction technique) TECHNICAL DOCUMENTATION: JOB ID: [id number] 2010 [employer]- All Rights Reserved Reading location - IP/workstation name: [email or web address]
== END ==
LOC: RAD 13:36
PROVIDERS: ATTEND Obstetrics & Gynecology
DX: O75.4 Other complications of obstetric surgery and procedures (principal); O90.2 Hematoma of obstetric wound
CPT/HCPCS: 74176

== ENCOUNTER 2020-04-21 11:07 | Emergency (ER) | payer OTHER, BC, MEDICAID ==
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
[2020-04-21 13:24] VITALS: BP 142/85
== END 2020-04-21 13:24 | disposition home or self-care (01) ==
LOC: ER 11:07
DX: M25.531 Pain in right wrist (principal); M25.562 Pain in left knee; V44.6XXA Car passenger injured in collision with heavy transport vehicle or bus in traffic accident, initial encounter; J45.909 Unspecified asthma, uncomplicated
CPT/HCPCS: 99283